=== PATIENT | male | born 1945 | race Caucasian/White ===

== ENCOUNTER 2018-10-17 00:14 | Emergency (ER) | payer MEDICARE ==
[2018-10-17 00:38] LABS: ABSOLUTE BASOPHILS # (AUTO) 0.1 10^3/uL (0.0-0.2); ABSOLUTE EOSINOPHILS # (AUTO) 0.3 10^3/uL (0.0-0.6); ABSOLUTE LYMPHOCYTES (AUTO) 1.8 10^3/uL (0.5-4.7); ABSOLUTE MONOCYTES (AUTO) 0.7 10^3/uL (0.1-1.4); ABSOLUTE NEUT (AUTO) 4.1 10^3/uL (1.7-8.2); BASOPHILS % (AUTO) 1.1 % (0-2); EOSINOPHILS % (AUTO) 3.9 % (0-6); HEMATOCRIT 43.3 % (37.9-51.0); HEMOGLOBIN 14.8 g/dL (13.5-17.0); MEAN CORPUSCULAR HEMOGLOBIN 30.4 pg (27.0-33.4); MEAN CORPUSCULAR HGB CONC 34.2 g/dL (32.0-36.0); MEAN CORPUSCULAR VOLUME 89 fl (80-97); MONOCYTES % (AUTO) 10.6 % (3-13); PLATELET COUNT 170 10^3/uL (150-450); RED BLOOD COUNT 4.87 10^6/uL (4.35-5.55); RED CELL DISTRIBUTION WIDTH 13.6 % (11.5-14.0); SEGMENTED NEUTROPHILS % (AUTO) 58.4 % (42-78); TOTAL CELLS COUNTED % (AUTO) 100 %; WHITE BLOOD COUNT 7.1 10^3/uL (4.0-10.5)
[2018-10-17 00:55] LABS: ALANINE AMINOTRANSFERASE 39 U/L (21-72); BILIRUBIN,DIRECT 0.3 mg/dL (0.0-0.4); BILIRUBIN,TOTAL 1.3 mg/dL (0.2-1.3); CREATINE KINASE 98 U/L (55-170)
[2018-10-17 01:07] LABS: CREATINE KINASE MB 0.63 ng/mL (<4.55)
[2018-10-17 01:11] LABS: TROPONIN I < 0.012 ng/mL
[2018-10-17] MEDS ORDERED: MAG HYDROX/AL HYDROX/SIMETH SUSP 30 ML UDCUP PO ONE (01:40)
[2018-10-17] MEDS ORDERED: METOCLOPRAMIDE HCL ORAL SOLN 10 MG/10 ML UDCUP PO ONE (01:40)
[2018-10-17] MEDS ORDERED: LIDOCAINE 2% VISCOUS SOLN 20 ML UDCUP PO ONE (01:40)
--- NOTE | 2018-10-17 01:42 | RADIOLOGY REPORT (SQ) ---
EXAM DESCRIPTION: XR CHEST 1 VIEW COMPLETED DATE/TME: 10/17/2018 00:20 CLINICAL HISTORY: 73 years Male, CP COMPARISON: None. NUMBER OF VIEWS/TECHNIQUE: 1/AP FINDINGS: Adequate lung volume, clear parenchyma, normal cardiac silhouette, and intact bony thorax. IMPRESSION: No acute cardiopulmonary findings.
--- NOTE | 2018-10-17 01:47 | ER Document Report ---
ED General - General Chief Complaint: Chest Pain Stated Complaint: LOWER LEFT CHEST PRESSURE Time Seen by Provider: 10/17/18 01:02 Primary Care Provider: JAYLA,NO [Primary Care Provider] - Follow up as needed Mode of Arrival: Medic Information source: Patient TRAVEL OUTSIDE OF THE [place] IN LAST 30 DAYS: No - HPI Onset: This evening Onset/Duration: Sudden Quality of pain: No pain Severity: None Pain Level: Denies Notes: Patient is a 73-year-old male with a history of 2 cardiac stents which were plac ed in July 2018, hypertension, a previous left bundle branch and an enlarged left ventricle per patient that presents to the emergency department by EMS with a chief complaint of low heart rate at home as well as palpitations. Patient reports around 10 PM he laid down for bed, patient did feel some palpitations so he checked his pulse ox and it was noted that his heart rate was 35. Patient th en switched fingers and checked pulse ox again which was heart rate was in the 70s. Patient continued to reevaluate his heart rate over the hour and noticed that it varied between 35 and 70. Patient called EMS because he wanted to go to the hospital and get checked out. Patient denied chest pain or shortness of breath. She states when he feels like this a GI cocktail fixes the problem. Patient reports that he did eat a banana prior to laying down and this tends to be a trigger for him. - Related Data Allergies/Adverse Reactions: azithromycin [From Zithromax] Adverse Reaction (Verified 10/17/18 01:39) Nausea Past Medical History - Social History Smoking Status: Unknown if Ever Smoked Lives with: Spouse/Significant other Family History: None Patient has suicidal ideation: No Patient has homicidal ideation: No - Past Medical History Cardiac Medical History: Reports: Hx Hypercholesterolemia, Hx Hypertension Pulmonary Medical History: Reports: None EENT Medical History: Reports: None Neurological Medical History: Reports: None Endocrine Medical History: Reports: None Renal/ Medical History: Denies: Hx Peritoneal Dialysis GI Medical History: Reports: Hx Hiatal Hernia Musculoskeletal Medical History: Reports None Skin Medical History: Reports None Review of Systems - Review of Systems Constitutional: See HPI EENT: No symptoms reported Cardiovascular: No symptoms reported, See HPI Respiratory: See HPI Gastrointestinal: See HPI Genitourinary: No symptoms reported Male Genitourinary: No symptoms reported Musculoskeletal: No symptoms reported Skin: No symptoms reported Hematologic/Lymphatic: No symptoms reported Neurological/Psychological: No symptoms reported Physical Exam - Vital signs Vitals: Resp Pulse Ox 20 98 10/17/18 00:21 10/17/18 00:21 Interpretation: Normal - General General appearance: Appears well, Alert In distress: None - Respiratory Respiratory status: No respiratory distress Chest status: Nontender Breath sounds: Normal Chest palpation: Normal - Cardiovascular Rhythm: Regular Heart sounds: Normal auscultation Pulses: Normal: Radial - bilateral - Abdominal Inspection: Normal Distension: No distension Bowel sounds: Normal Tenderness: Nontender Organomegaly: No organomegaly - Psychological Associated symptoms: Normal affect, Normal mood - Skin Skin Temperature: Warm Skin Moisture: Dry Skin Color: Normal Skin Turgor: Elastic Course - Re-evaluation Re-evalutation: 10/17/18 05:35 Patient reports feeling much better after receiving the GI cocktail. Patient states that since being in the ER he has not had any chest pain or palpitations, and that he thinks that the banana he ate caused esophageal spasms which has happened in the past. When asking about patient's discomfort patient reports that he has been dealing with his hiatal hernia for 30 years which he states causes the palpitations. Discussed with patient and the lab results and negative cardiac workup to include 2 negative troponins. Due to significant cardiac history discussed with patient and need for potential admission or to contact his financial professional in [place] for consult. Patient states that he does not want to stay and he does not want me to call his doctor, reports that he can handle that and he will call to see if he can get an appointment earlier than 1 month. Patient does have a follow-up appointment with his primary care physician next Tuesday. Instructed patient to seek medical attention if he develops worsening chest pain shortness of breath or any other concerning signs or symptoms. Patient and verbalized understanding. - Vital Signs Vital signs: Temp Pulse Resp BP Pulse Ox 98.6 F 17 144/82 H 96 10/17/18 06:00 10/17/18 06:00 10/17/18 06:00 10/17/18 06:00 - Laboratory Result Diagrams: 10/17/18 00:26 10/17/18 00:26 Laboratory results interpreted by me: 10/17/18 00:26 Potassium 3.4 L - Diagnostic Test Radiology reviewed: Reports reviewed - EKG Interpretation by Me EKG shows normal: Sinus rhythm Rate: Normal Rhythm: NSR [place]/QRS: LBBB Heart block present: 1st Degree When compared to previous EKG there are: Other - No other EKG for comparison Discharge - Discharge Clinical Impression: Chest pain Condition: Stable Disposition: HOME, SELF-CARE Additional Instructions: Your cardiac workup today was negative. Please keep your appointment with your primary care physician next Tuesday and please call your financial professional to make a follow-up appointment regarding your symptoms today. Please return if symptoms worsen to include chest pain, shortness of breath, irregular heartbeat, etc. Referrals: LOCALMD,NO [Primary Care Provider] - Follow up as needed
[2018-10-17 01:50] LABS: CARBON DIOXIDE 27 mmol/L (22-30); CHLORIDE 103 mmol/L (98-107); POTASSIUM 3.4 mmol/L (3.6-5.0)
[2018-10-17 01:51] LABS: ALKALINE PHOSPHATASE 66 U/L (38-126); ANION GAP 9 (5-19); ASPARTATE AMINO TRANSFERASE 29 U/L (17-59); BLOOD UREA NITROGEN 13 mg/dL (7-20); CALCIUM 9.6 mg/dL (8.4-10.2); GLUCOSE 108 mg/dL (75-110); SODIUM 139.4 mmol/L (137-145)
[2018-10-17 06:05] VITALS: BP 144/82
--- NOTE | 2018-10-18 00:04 | EKG REPORT ---
SEVERITY:- ABNORMAL ECG - SINUS RHYTHM FIRST DEGREE AV BLOCK LEFT BUNDLE BRANCH BLOCK : Confirmed by: Jann Mendoza 18-Oct-2018 00:03:35
== END 2018-10-17 06:06 | disposition home or self-care (01) ==
LOC: ER 00:14
DX: R07.9 Chest pain, unspecified (principal); R00.2 Palpitations; I10 Essential (primary) hypertension; Z88.3 Allergy status to other anti-infective agents; E78.00 Pure hypercholesterolemia, unspecified
CPT/HCPCS: 93005; 94640; 99285; 36415; 82553; 82550; 85025; 80053; 84484; 71045; 93010; J3490; A9270